=== PATIENT | male | born 1950 | race Caucasian/White ===

== ENCOUNTER → 2023-08-11 07:50 | Outpatient (BNVA) | payer OTHER, SELFPAY | PROVIDERS: Referring Provider Family Medicine; Visit Provider Nurse Practitioner Family | DX: L30.8 Other specified dermatitis (principal); L85.3 Xerosis cutis | CPT/HCPCS: 99204 ==

== ENCOUNTER → 2023-09-14 11:08 | Outpatient (BNVA) | payer OTHER, SELFPAY | PROVIDERS: Visit Provider Nurse Practitioner Family | DX: L30.8 Other specified dermatitis (principal); L57.8 Other skin changes due to chronic exposure to nonionizing radiation | CPT/HCPCS: 99214 ==

== ENCOUNTER → 2025-02-22 07:15 | Outpatient (BNVA) | payer OTHER, SELFPAY | PROVIDERS: PCP Family Medicine; Visit Provider Student in an Organized Health Care Education/Training Program | DX: M67.441 Ganglion, right hand (principal); M15.8 Other polyosteoarthritis | CPT/HCPCS: 99204 ==

== ENCOUNTER 2025-04-06 07:43 | Day surgery (SDC) | payer OTHER, SELFPAY ==
[2025-04-06 07:20] VITALS: BMI 26.1
--- NOTE | 2025-04-06 07:59 | W.PM.OPSFHP ---
Same Day Surgery H&P Indication for Procedure/HPI DATE OF PROCEDURE: April 06, 2025 CHIEF COMPLAINT/INDICATIONFOR SURGICAL PROCEDURE: Right thumb mucous cyst, right thumb IP joint arthritis PREOP DIAGNOSIS: Right thumb mucous cyst, right thumb IP joint arthritis PLANNED PROCEDURE: Operation Date: 04/06/25 09:45 Proposed Procedures p Right Thumb Mucous Cyst Excision(Right) - Karlo Pearson, DO s Dorsal Osteophyte Ostectomy(Right) - Karlo Michel, DO Medications/Allergies* Home Medications ?Medication ?Instructions ?Recorded ?Confirmed ?Type levothyroxine 150 mcg capsule 150 mcg PO DAILY 02/22/25 04/05/25 History potassium chloride 20 mEq 20 meq PO DAILY 02/22/25 04/05/25 History tablet,extended release (K-Tab) rosuvastatin 40 mg tablet 40 mg PO DAILY 02/22/25 04/05/25 History Allergies/Adverse Reactions Allergy/AdvReac Type Severity Reaction Status Date / Time No Known Allergies Allergy Verified 04/05/25 10:45 Pertinent History/Comorbid Conditions* Social History Smoking and tobacco/nicotine status: former use of tobacco/nicotine (QUIT 40 YEARS AGO) Pertinent Exam Findings alert, oriented x 3, operative site marked and procedure specific exam findings Please refer to detailed orthopedic examination on 02/22/2025 listed below: Examination of the right hand demonstrates patient has tenderness palpation and a palpable mucous cyst over the IP joint of her right thumb with prominent dorsal osteophyte on palpation decreased range of motion of the thumb. Sensation tact light touch distally. Recommendations Risks and benefits of procedure reviewed and Patient/family agree to proceed Surgery/Procedure today Other Plans: Patient at this point in time here to proceed to the OR for a right thumb mucous cyst excision and dorsal osteophyte ostectomy. Patient understands the ins and outs procedure the risk benefits complication alternatives with surgery and through shared decision patient like to proceed with surgical intervention all questions have been answered at this time. Will proceed to the OR today. Coding Level of Care Code Acute Code for Chg Ino
[2025-04-06] MEDS: sodium chloride 0.9% 1,000 ML 30 ML IV (08:34)
[2025-04-06] MEDS: acetaminophen 1,000 MG/100 ML PIGGYBACK 400 MG IV (08:35)
--- NOTE | 2025-04-06 08:41 | ANES.PREANE2 ---
Pre-Anesthetic Assessment Height/Weight: Height 1.73 m Weight 78.018 kg O2 Del Method Room Air 04/06/25 08:13 Preop Diagnosis: Right thumb mucous cyst, right thumb IP joint arthritis Operation Date: 04/06/25 09:45 Proposed Procedures p Right Thumb Mucous Cyst Excision(Right) - Karlo Pearson DO s Dorsal Osteophyte Ostectomy(Right) - Karlo Pearson DO Familial anesthetic complications: none Was Beta Subha taken within 24 hours: N/A Was Clonidine taken within 24 hours: N/A Last intake: Intake Last Liquid Date 04/05/25 Last Liquid Time 16:00 Last Solid Date 04/05/25 Last Solid Time 16:00 Social No alcohol and No tobacco Exam alert, oriented x 3, clear to auscultation bilaterally and regular rate & rhythm Airway Mallampati: Class I Dentition: full Metabolic Hyperlipidemia and Thyroid Disease Anesthetic Plan ASA status: 3 Anesthesia: MAC Risk of > 500 ml blood loss (7ml/kg in children): No Medications/Allergies Home Medications ?Medication ?Instructions ?Recorded ?Confirmed ?Last Taken ?Type levothyroxine 150 mcg capsule 150 mcg PO DAILY 02/22/25 04/05/25 04/06/25 History potassium chloride 20 mEq 20 meq PO DAILY 02/22/25 04/05/25 04/05/25 History tablet,extended release (K-Tab) rosuvastatin 40 mg tablet 40 mg PO DAILY 02/22/25 04/05/25 04/05/25 History hydrocodone 7.5 mg-acetaminophen 1 tab PO Q6H PRN pain #20 tabs 04/06/25 Unknown Rx 325 mg tablet Allergies Allergy/AdvReac Type Severity Reaction Status Date / Time No Known Allergies Allergy Verified 04/05/25 10:45 Current Medications Generic Name Dose Route Start Last Admin Trade Name Freq PRN Reason Stop Dose Admin Sodium Chloride 1,000 mls @ 30 mls/hr 04/06/25 08:15 04/06/25 08:34 Sodium Chloride 0.9% IV 04/07/25 08:14 30 mls/hr .Q24H LAUREN Administration PFSH Anesthesia Social History Smoking and tobacco/nicotine status: former use of tobacco/nicotine (QUIT 40 YEARS AGO)
[2025-04-06] MEDS: ceFAZolin 2,000 MG in sodium chloride 0.9% (plus) 50 ML 100 MG IV (09:10)
[2025-04-06] MEDS: sodium bicarbonate 4.2% 0.5 mEq/mL SDV 5mL INTRADERMA (09:43)
[2025-04-06] MEDS: lidocaine 1% 10 ML INJ XX (09:44)
[2025-04-06 09:59] VITALS: BP 121/68; PULSE 70; RESP 16; TEMP 36.3; O2SAT 94
[2025-04-06 10:04] VITALS: BP 111/68; PULSE 68; RESP 16; O2SAT 93
[2025-04-06 10:09] VITALS: BP 122/71; PULSE 68; RESP 16; O2SAT 92
--- NOTE | 2025-04-06 10:12 | PM.PACU ---
PACU note Narrative: Patient is a 74-year-old male that just underwent a thumb cyst excision on the right hand. Patient transferred to PACU in stable condition. Pain is well controlled. Dressing and splint on hand is dry and in place. Patient's fingers are warm and well-perfused. Patient can wiggle fingers. normal cap refill under 2 seconds. Patient has normal elbow range of motion. sensation to hand intact. Exam: awake Disposition: discharged
[2025-04-06 10:14] VITALS: BP 127/65; PULSE 68; RESP 16; TEMP 36.3; O2SAT 93
--- NOTE | 2025-04-06 10:20 | ANE.PACU2 ---
Inpatient post-anesthesia follow up: Airway intact: Yes Vital signs: Temperature 98.0 F Pulse Rate 61 Respiratory Rate 14 Blood Pressure 116/64 Pulse Oximetry 95 Oxygen Delivery Me thod Room Air Oxygen Flow Rate Fraction of Inspir ed Oxygen Hydration adequate: Yes Nausea and vomiting: No Pain level: 1 Mental status: Baseline
[2025-04-06 10:23] VITALS: BP 128/63; PULSE 63; RESP 14; TEMP 36.4; O2SAT 95
--- NOTE | 2025-04-06 10:37 | P.BOP_ITS ---
Date of Procedure: 04/06/2025 Surgeon: Karlo Pearson DO Small Stock Facer(s): None Procedure(s) performed: Right thumb mucous cyst excision Right thumb dorsal osteophyte ostectomy Findings of the procedure(s): Patient underwent procedure as planned without issues or complications, placed in a thumb spica splint will follow-up in a 2 weeks. Estimated blood loss: 2 Specimen(s) removed: Right thumb mucous cyst and dorsal osteophyte excised and sent for specimen Post-operative diagnosis: Right thumb mucous cyst and dorsal osteophyte prominence for right thumb IP joint arthritis
--- NOTE | 2025-04-06 10:40 | P.OP_ITS ---
Operative Report Date of procedure: April 06, 2025 Surgeon: Karlo Pearson DO Procedure: Preop Dx: Right thumb mucous cyst, right thumb IP joint arthritis Post-op diagnosis: Same Procedure done: Right thumb mucous cyst excision Right thumb dorsal osteophyte ostectomy IP joint Surgeon: Karlo Pearson DO Estimated blood loss: 2 mL Tourniquet time 20 minutes IV fluids: 800 mL Complications: None Findings: See operative report narrative Condition: stable Disposition: same day Brief History: Patient presents to the outpatient setting with findings consistent with a right Thumb ?mucous?cyst.? Patient has been worked up in the outpatient setting and is failed conservative treatment approach.? Patient has right Thumb finger noticeable?mucous?cyst that appears to be associated with IP arthritis with poss ible dorsal osteophyte prominence.? Patient wishes to proceed with surgical intervention.? We talked about the risk benefits complications and alternatives with surgical nonsurgical treatment options.? Understanding risk of surgery patient agrees to proceed with a right Thumb ?mucous?cyst excision and dorsal osteophyte ostectomy.? All questions answered. Procedure: Patient was seen evaluated in the preoperative holding area.? Consent was reviewed and signed with patient.? Correct extremity was then marked.? Patient was then seen and evaluated by the anesthesia department once cleared for wells rgery patient was then taken back to the operative suite patient was placed in supine position and all bony prominences well-padded the patient was properly secured to the bed.? Armboard was applied to the right upper extremity. This point time the right upper extremity was then prepped and draped in standard orthopedic fashion.? A final timeout was performed.? Patient received appropriate preoperative antibiotics. Prior to proceeding with incision sites I then performed digital block of the right Thumb under sterile aseptic technique Esmarch tourniquet was used exsanguinate right upper extremity tourniquet insufflated to 250 mmHg. ? Right Thumb was then identified as well as the?mucous?cyst over the IP joint on the radial aspect of the finger.? I then from the eponychial fold made an incision up to the DIP joint and then made a full-thickness skin flap to identify the?mucous?cyst.? Sharp scalpel excision and then switching to a Hardeman blade for meticulous dissection under loupe magnification identified a??mucous?cyst which was then subsequently excised.? Patient was noted to have a large bony prominence of the distal phalanx and osteophyte.? Identified the extensor mechanism this was protected carefully throughout my case.? I incised the radial side of the tendon capsule complex where the dorsal osteophyte was prominent through. identified the prominent dorsal osteophyte and then utilized a small rongeur to excise this prominent dorsal osteophyte of the distal phalanx.? Once ostectomy was then complete and smoothed with a rasp over and laid my skin flap down over the site and?mucous?cyst was gone as well as patient's dorsal prominence. This was sent for specimen. Size was roughly 0.25 cm x 0.25 cm x 0.25 cm. I was satisfied with this I then thoroughly irrigated the wound bed.? I utilized interrupted 4-0 Monocryl suture to reapproximate the longitudinal split of the capsule.? Next I then tourniquet deflated, wound bed was then thoroughly irrigated hemostasis was maintained with bipolar electrocautery.? Next I closed the incision with interrupted nylon suture.? Incision sites were then dressed with Xeroform 4 x 4's Kerlix Zachary wrap and an Alejandro wrap thumb spica splint applied.? Patient was then awakened from anesthesia and taken to PACU in stable condition. Disposition: Patient taken to PACU in stable condition recovering well.? Dressing on in place clean dry and intact.? Patient was receive appropriate discharge instruction as well as pain medication postoperatively.? Patient to follow-up with in the office in 2 weeks.? Patient understands and agrees with current plan.? All questions answered.
[2025-04-06 10:50] VITALS: BP 116/64; PULSE 61; RESP 14; TEMP 36.7; O2SAT 95
== END 2025-04-06 11:20 | disposition home or self-care (01) ==
PROVIDERS: PCP Family Medicine; Visit Provider Student in an Organized Health Care Education/Training Program
PROC: (CPT 26525; principal; 2025-04-06 09:45)
PROC: (CPT 26525; 2025-04-06 09:45)
DX: M67.441 Ganglion, right hand (principal); M19.041 Primary osteoarthritis, right hand; E78.5 Hyperlipidemia, unspecified; E07.9 Disorder of thyroid, unspecified; Z87.891 Personal history of nicotine dependence
CPT/HCPCS: 26525; 26160; 88304; J0131; J0690; J2704; J3010; J7030; J9999

== ENCOUNTER → 2025-04-21 07:43 | Outpatient (BNVA) | payer OTHER, SELFPAY | PROVIDERS: PCP Family Medicine; Visit Provider Physician Assistant | DX: M67.441 Ganglion, right hand (principal); Z98.890 Other specified postprocedural states | CPT/HCPCS: 99024 ==